=== PATIENT | male | born 1970 | race African-American/Black ===

== ENCOUNTER 2024-02-20 13:47 | Inpatient (IN) | payer OTHER ==
[2024-02-20 14:22] VITALS: BMI 25.0
[2024-02-20] MEDS ORDERED: guaiFENesin 600 MG TABLET.ER (FP) PO PRN (15:13)
[2024-02-20] MEDS ORDERED: NALOXONE HCL 0.4 MG/ML VIAL IM PRN (15:13)
[2024-02-20] MEDS ORDERED: LOPERAMIDE HCL 2 MG CAPSULE PO PRN (15:13)
[2024-02-20] MEDS ORDERED: NALOXONE HCL (KLOXXADO) 8 MG SPRAY NS PRN (15:13)
[2024-02-20] MEDS ORDERED: MAG HYDROX/AL HYDROX/SIMETH 30 ML UNIT-DOSE CUP PO PRN (15:13)
[2024-02-20] MEDS ORDERED: LORazepam 1 MG TABLET PO PRN (15:13)
[2024-02-20] MEDS ORDERED: BENZOCAINE/MENTHOL (CHLORASEPTIC ) LOZENGE MM PRN (15:13)
[2024-02-20] MEDS ORDERED: MAGNESIUM HYDROX 2400MG/30ML ORAL SUSPENSION 30 ML CUP PO PRN (15:13)
[2024-02-20] MEDS ORDERED: POLYETHYLENE GLYCOL (HEALTHYLAX) 3350 17 GM PACKET PO PRN (15:13)
[2024-02-20] MEDS ORDERED: BISMUTH SUBSALICYLATE 524 MG/30 ML PO PRN (15:13)
[2024-02-20] MEDS ORDERED: BENZONATATE 200 MG CAPSULE PO PRN (15:13)
[2024-02-20] MEDS ORDERED: LORazepam 2 MG TABLET ONE (16:46)
[2024-02-20] MEDS ORDERED: ONDANSETRON *ODT* 4 MG TABLET ONE (16:46)
[2024-02-20] MEDS: LORazepam 2 MG TABLET PO SCH (16:48)
[2024-02-20] MEDS: ONDANSETRON *ODT* 4 MG TABLET SL PRN (16:48)
[2024-02-20] MEDS: ACETAMINOPHEN 325 MG TABLET (FP) PO PRN (20:12)
[2024-02-20] MEDS: METHOCARBAMOL 500 MG TABLET PO PRN (22:12)
[2024-02-20] MEDS: THIAMINE 100 MG TABLET PO SCH (22:13)
[2024-02-20] MEDS: MELATONIN 5 MG TABLETS PO SCH (22:13)
[2024-02-21] MEDS: PANTOPRAZOLE 40 MG TABLET PO SCH (10:07)
[2024-02-21] MEDS: PRENATAL VITAMINS W/ FOLIC ACID TABLET (FP) PO SCH (10:07)
[2024-02-21] MEDS: levETIRAcetam 250 MG TABLET PO SCH (10:08)
[2024-02-21] MEDS: amLODIPine BESYLATE 10 MG TABLET (FP) PO SCH (10:08)
[2024-02-21] MEDS: NICOTINE 7 MG/24 HOURS TOPICAL PATCH TD SCH (10:40)
[2024-02-21] MEDS: VALSARTAN 40 MG TABLET PO SCH (10:55)
[2024-02-21] MEDS: TRIAMCINOLONE ACET 0.1% OINT 15 GM TUBE TP SCH (10:55)
[2024-02-21] MEDS: IBUPROFEN 600 MG TABLET (FP) PO PRN (17:24)
[2024-02-21] MEDS: DICYCLOMINE HCL 10 MG CAPSULE PO PRN (18:43)
[2024-02-21] MEDS: hydrOXYzine PAMOATE 25 MG CAPSULE (FP) PO PRN (20:42)
[2024-02-22] MEDS: LORazepam 1 MG TABLET PO SCH (05:39)
[2024-02-22] MEDS: ALBUTEROL SO4 HFA INHALER IH PRN (13:01)
[2024-02-22] MEDS: IBUPROFEN 400 MG TABLET (FP) PO PRN (17:19)
[2024-02-22] MEDS: P-EPHED 60MG/TRIPROLIDI 2.5MG TABLET PO PRN (19:29)
[2024-02-23] MEDS ORDERED: LORazepam 0.5 MG TABLET PO PRN
[2024-02-23] MEDS: LORazepam 0.5 MG TABLET PO SCH (05:32)
[2024-02-24] MEDS: LORazepam 0.5 MG TABLET PO ONE (05:35)
[2024-02-24 05:51] VITALS: RESP 18
[2024-02-24 09:32] VITALS: BP 145/100; PULSE 106; TEMP 97.5
== END 2024-02-24 12:46 | disposition other institution (70) | DRG 775 ==
LOC: YASAS 13:47 → Y6N 16:17
PROVIDERS: ADMIT Allergy & Immunology; ATTEND Surgery
PROC: HZ2ZZZZ Detoxification Services for Substance Abuse Treatment (ICD-10-PCS; principal; 2024-02-20)
DX: F10.230 Alcohol dependence with withdrawal, uncomplicated (principal); F17.210 Nicotine dependence, cigarettes, uncomplicated; G40.909 Epilepsy, unspecified, not intractable, without status epilepticus; I10 Essential (primary) hypertension; K21.9 Gastro-esophageal reflux disease without esophagitis; L20.82 Flexural eczema; L97.511 Non-pressure chronic ulcer of other part of right foot limited to breakdown of skin; R73.03 Prediabetes; Z28.310 Unvaccinated for COVID-19; Z28.9 Immunization not carried out for unspecified reason
CPT/HCPCS: 87811; 93005; 93010; Q0162

== ENCOUNTER 2024-02-24 12:54 | Inpatient (IN) | payer OTHER ==
[~2024-02-24 12:54] MED LIST: ACETAMINOPHEN 325 MG TABLET (FP) PO PRN; BENZONATATE 200 MG CAPSULE PO PRN; LOPERAMIDE HCL 2 MG CAPSULE PO PRN; MAG HYDROX/AL HYDROX/SIMETH 30 ML UNIT-DOSE CUP PO PRN; MAGNESIUM HYDROX 2400MG/30ML ORAL SUSPENSION 30 ML CUP PO PRN; NICOTINE POLACRILEX 2 MG GUM BUC PRN; POLYETHYLENE GLYCOL (HEALTHYLAX) 3350 17 GM PACKET PO PRN; hydrOXYzine PAMOATE 25 MG CAPSULE (FP) PO PRN
[2024-02-24] MEDS: ACAMPROSATE CALCIUM 333 MG TABLET.DR PO SCH (14:34)
[2024-02-24] MEDS: THIAMINE 100 MG TABLET PO SCH (21:02)
[2024-02-24] MEDS: MELATONIN 5 MG TABLETS PO SCH (21:02)
[2024-02-24] MEDS: IBUPROFEN 600 MG TABLET (FP) PO PRN (21:05)
[2024-02-25] MEDS: NICOTINE 7 MG/24 HOURS TOPICAL PATCH TD SCH (10:06)
[2024-02-25] MEDS: guaiFENesin 600 MG TABLET.ER (FP) PO PRN (10:07)
[2024-02-25] MEDS: PANTOPRAZOLE 40 MG TABLET PO SCH (10:08)
[2024-02-25] MEDS: PRENATAL VITAMINS W/ FOLIC ACID TABLET (FP) PO SCH (10:08)
[2024-02-25] MEDS: levETIRAcetam 250 MG TABLET PO SCH (10:08)
[2024-02-25] MEDS: amLODIPine BESYLATE 10 MG TABLET (FP) PO SCH (10:08)
[2024-02-25] MEDS: VALSARTAN 40 MG TABLET PO SCH (10:24)
[2024-02-25] MEDS: TRIAMCINOLONE ACET 0.1% OINT 15 GM TUBE TP SCH (10:24)
[2024-02-25] MEDS: METHOCARBAMOL 500 MG TABLET PO SCH (11:02)
[2024-02-25] MEDS: diphenhydrAMINE HCL 25 MG CAPSULE (FP) PO PRN (21:21)
[2024-02-26] MEDS: BENZOCAINE/MENTHOL (CHLORASEPTIC ) LOZENGE MM PRN (06:17)
[2024-02-26 10:18] LABS: BASO % 0.6 % (0-2.0); EOS % 3.7 % (0-4.5); HEMATOCRIT 34.2 % (35.4-49); HEMOGLOBIN 11.5 GM/dL (11.7-16.9); MCH 33.9 pg (25.7-33.7); MCHC 33.5 g/dl (32.0-35.9); MEAN PLT VOLUME 10.7 fl (7.5-11.1); MONO % 9.7 % (3.8-10.2); PLATELET COUNT 223 10^3/uL (134-434); RBC 3.39 M/mm3 (4.00-5.60); RDW 15.7 % (11.9-15.9); WHITE BLOOD COUNT 6.1 K/mm3 (4.0-10.0)
[2024-02-26] MEDS: ALBUTEROL SO4 HFA INHALER IH PRN (10:24)
[2024-02-26 10:39] LABS: CALCIUM 9.2 mg/dL (8.5-10.1)
[2024-02-26 10:40] LABS: ALBUMIN 3.4 g/dl (3.4-5.0); BLOOD UREA NITROGEN 11.3 mg/dL (7-18); MAGNESIUM 1.5 mg/dL (1.8-2.4)
[2024-02-26 10:43] LABS: CREATININE 0.7 mg/dL (0.55-1.3)
[2024-02-26 10:44] LABS: INR 1.14 (0.83-1.09); PROTHROMBIN TIME (PATIENT) 12.8 SEC (9.7-13.0)
[2024-02-26 10:44] LABS: BILIRUBIN,TOTAL 0.9 mg/dL (0.2-1); TOT PROT 8.6 g/dl (6.4-8.2)
[2024-02-26] MEDS: LACTULOSE 20 GM/30 ML UDC (FOR ORAL USE ONLY) PO SCH (14:44)
[2024-02-26] MEDS: MAGNESIUM OXIDE 400 MG TABLET (FP) PO SCH (15:01)
[2024-02-28] MEDS: IBUPROFEN 400 MG TABLET (FP) PO PRN (21:08)
[2024-03-01] MEDS: levETIRAcetam XR 750 MG TAB PO SCH (16:47)
[2024-03-04 08:26] LABS: POTASSIUM 3.9 mmol/L (3.5-5.1)
[2024-03-04 08:31] LABS: INR 1.21 (0.83-1.09); PROTHROMBIN TIME (PATIENT) 13.6 SEC (9.7-13.0)
[2024-03-04 08:39] LABS: ALBUMIN 3.1 g/dl (3.4-5.0); BLOOD UREA NITROGEN 10.2 mg/dL (7-18)
[2024-03-04 08:42] LABS: CREATININE 0.6 mg/dL (0.55-1.3)
[2024-03-04 08:44] LABS: BILIRUBIN,TOTAL 0.5 mg/dL (0.2-1); TOT PROT 7.6 g/dl (6.4-8.2)
[2024-03-05] MEDS: RIFAXIMIN 550 MG TABLET PO SCH (11:55)
[2024-03-05] MEDS: METHOCARBAMOL 500 MG TABLET PO SCH (21:17)
[2024-03-12] MEDS: LORATADINE 10 MG TABLET PO PRN (09:40)
[2024-03-15] MEDS: AMOX TR/POT CLAV 500MG/125MG TABLETS (FP) PO SCH (18:05)
[2024-03-15] MEDS: METHOCARBAMOL 500 MG TABLET PO PRN (21:33)
[2024-03-16 17:49] LABS: ALBUMIN 3.4 g/dl (3.4-5.0); BILIRUBIN,TOTAL 0.5 mg/dL (0.2-1); BLOOD UREA NITROGEN 11.8 mg/dL (7-18); CALCIUM 8.9 mg/dL (8.5-10.1); CREATININE 0.6 mg/dL (0.55-1.3); POTASSIUM 3.7 mmol/L (3.5-5.1); TOT PROT 8.8 g/dl (6.4-8.2)
[2024-03-16] MEDS: BENZOCAINE 20 % GEL TUBE MM PRN (22:49)
[2024-03-19 12:06] LABS: INR 1.16 (0.83-1.09)
[2024-03-23 07:11] VITALS: RESP 20; TEMP 97.3
[2024-03-23 09:14] VITALS: BP 122/80; PULSE 80
== END 2024-03-23 10:48 | disposition home or self-care (01) | DRG 772 ==
LOC: YASAS 12:54 → Y3W 12:55
PROVIDERS: ADMIT Allergy & Immunology; ATTEND Psychiatry & Neurology Pain Medicine
PROC: HZ42ZZZ Group Counseling for Substance Abuse Treatment, Cognitive-Behavioral (ICD-10-PCS; principal; 2024-02-24)
DX: F10.20 Alcohol dependence, uncomplicated (principal); F17.210 Nicotine dependence, cigarettes, uncomplicated; E72.20 Disorder of urea cycle metabolism, unspecified; E78.5 Hyperlipidemia, unspecified; G47.00 Insomnia, unspecified; I10 Essential (primary) hypertension; K21.9 Gastro-esophageal reflux disease without esophagitis; K02.9 Dental caries, unspecified; L97.519 Non-pressure chronic ulcer of other part of right foot with unspecified severity; L20.82 Flexural eczema; R73.03 Prediabetes; Z59.01 Sheltered homelessness
CPT/HCPCS: 0241U-QW; 36415; 80053; 80177; 82140; 82272; 82607; 82652; 82746; 82962; 83036; 83735; 85025; 85610; 86803